=== PATIENT | male | born 1995 | race Caucasian/White ===

== ENCOUNTER 2017-03-22 02:45 | Emergency (ER) | payer MEDICAID, OTHER ==
[2017-03-22 02:45] VITALS: BMI 32.5
[2017-03-22 02:53] VITALS: RESP 20; TEMP 97.7
--- NOTE | 2017-03-22 03:01 | C.PDOC ---
Time Seen by Provider: 03/22/17 03:00 Chief Complaint (Nursing): Chest Pain Past Medical History Vital Signs: Last Vital Signs Temp 97.7 F 03/22/17 02:52 Pulse 84 03/22/17 02:52 Resp 20 03/22/17 02:52 BP 125/76 03/22/17 02:52 Pulse Ox 97 03/22/17 02:52 - Medical History PMH: Atrial Fibrillation, HTN Denies: Chronic Kidney Disease - Social History Hx Tobacco Use: Yes Hx Alcohol Use: Yes (drinks liquor 1 pint/week) Hx Substance Use: Yes - Immunization History Hx Tetanus Toxoid Vaccination: No Hx Influenza Vaccination: No Hx Pneumococcal Vaccination: No ED Course And Treatment O2 Sat by Pulse Oximetry: 97 Disposition Counseled Patient/Family Regarding: Studies Performed, Diagnosis - Disposition Disposition Time: 03:00 Forms: [employer] (Sinhala)
[2017-03-22] MEDS ORDERED: Aspirin 325 mg EC Tablets PO STA (03:11)
--- NOTE | 2017-03-22 03:11 | C.PDOC ---
History Of Present Illness Patient presents to the ER with a complaint of dull, aching, pinching chest discomfort that began 30 minutes ago after smoking marijuana. Patient has a Hx of afib but is currently not on any medications. Patient reports the pain as resolved at this time and is speaking in complete sentences. Denies fever, chills, nausea, or vomiting. Time Seen by Provider: 03/22/17 03:00 Chief Complaint (Nursing): Chest Pain History Per: Patient History/Exam Limitations: no limitations Onset/Duration Of Symptoms: Mins Current Symptoms Are (Timing): Gone Severity: None Pain Scale Rating Of: 0 Recent travel outside of the [place]: No Past Medical History Reviewed: Historical Data, Nursing Documentation, Vital Signs Vital Signs: Last Vital Signs Temp 97.7 F 03/22/17 02:52 Pulse 84 03/22/17 02:52 Resp 20 03/22/17 02:52 BP 125/76 03/22/17 02:52 Pulse Ox 97 03/22/17 03:52 - Medical History PMH: Atrial Fibrillation, HTN Family History: States: No Known Family Hx - Social History Hx Tobacco Use: Yes Hx Alcohol Use: Yes (drinks liquor 1 pint/week) Hx Substance Use: Yes - Immunization History Hx Tetanus Toxoid Vaccination: No Hx Influenza Vaccination: No Hx Pneumococcal Vaccination: No Review Of Systems Constitutional: Negative for: Fever, Chills Cardiovascular: Positive for: Other (Chest discomfort) Respiratory: Negative for: Shortness of Breath Gastrointestinal: Negative for: Nausea, Vomiting, Diarrhea Physical Exam - Physical Exam Appears: Non-toxic, No Acute Distress Skin: Warm, Dry Head: Normacephalic Oral Mucosa: Moist Chest: Symmetrical, No Tenderness Cardiovascular: Rhythm Regular Respiratory: No Rales, No Rhonchi, No Wheezing Gastrointestinal/Abdominal: Soft, No Tenderness Neurological/Psych: Oriented x3 ED Course And Treatment - Laboratory Results Result Diagrams: 03/22/17 03:30 03/22/17 03:30 ECG: Interpreted By Me, Viewed By Me ECG Rhythm: Sinus Rhythm (75), Nonspecific Changes O2 Sat by Pulse Oximetry: 97 Pulse Ox Interpretation: Normal - Radiology CXR: Interpreted by Me, Viewed By Me CXR Interpretation: No: Infiltrates, Fracture, Pnemothorax Progress Note: EKG, blood work, CXR, and urinalysis ordered. Aspirin administered. Reevaluation Time: 04:22 Reassessment Condition: Improved Disposition Counseled Patient/Family Regarding: Studies Performed, Diagnosis, Need For Followup - Disposition Referrals: Romaine Alejandro MD [Staff Provider] - Disposition: HOME/ ROUTINE Disposition Time: 03:10 Condition: FAIR Instructions: Costochondritis (ED) Forms: [employer] (Uzbek) - Clinical Impression Clinical Impression: Costochondral chest pain - Scribe Statement The provider has reviewed the documentation as recorded by the Scribjanet Taylor All medical record entries made by the Nicibjanet were at my direction and personally dictated by me. I have reviewed the chart and agree that the record accurately reflects my personal performance of the history, physical exam, medical decision making, and the department course for this patient. I have also personally directed, reviewed, and agree with the discharge instructions and disposition.
[2017-03-22 03:32] LABS: BASO # 0.1 K/uL (0.0-0.2); BASO % 1.1 % (0.0-2.0); EOS # 0.4 K/uL (0.0-0.7); EOS % 3.9 % (0.0-4.0); HEMATOCRIT 41.5 % (35.0-51.0); LYMPH # 3.4 K/uL (1.0-4.3); MEAN CELL VOLUME 86.8 fL (80.0-94.0); MEAN CORPUSCULAR HEMOGLOBIN 29.2 pg (27.0-31.0); MEAN CORPUSCULAR HGB CONC 33.7 g/dL (33.0-37.0); MONO # 0.9 K/uL (0.0-0.8); NRBC % 0.1 % (0.0-2.0); WHITE BLOOD COUNT 10.6 K/uL (4.8-10.8)
[2017-03-22 03:39] LABS: ALB/GLOB RATIO 1.8 (1.0-2.1); ALKALINE PHOSPHATASE 39 U/L (38-126); ALT/SGPT 37 U/L (21-72); AST/SGOT 31 U/L (17-59); BILIRUBIN,TOTAL 0.7 mg/dL (0.2-1.3); BLOOD UREA NITROGEN 19 mg/dL (9-20); CALCIUM 8.6 mg/dl (8.6-10.4); CARBON DIOXIDE 26 mmol/L (22-30); CHLORIDE 100 mmol/L (98-107); GFR AFRICAN-AMERICAN > 60; GLUCOSE,RANDOM 86 mg/dL (75-110); POTASSIUM 3.8 mmol/L (3.6-5.2); SODIUM 136 mmol/L (132-148); TOTAL PROTEIN 6.7 g/dL (6.3-8.3)
[2017-03-22] MEDS ORDERED: Aspirin 325 mg EC Tablets PO ONE (03:39)
[2017-03-22 03:51] LABS: RBC URINE < 1 /hpf (0-3); URINE BILIRUBIN NEGATIVE (NEGATIVE); URINE BLOOD NEGATIVE (NEGATIVE); URINE COLOR Straw (YELLOW); URINE GLUCOSE (UA) NORMAL (Normal); URINE KETONE NEGATIVE (NEGATIVE); URINE LEUKOCYTE ESTERASE NEG Leu/uL (Negative); URINE PROTEIN NEGATIVE (NEGATIVE); URINE UROBILINOGEN NORMAL mg/dL (0.2-1.0)
[2017-03-22 04:34] VITALS: BP 145/78; PULSE 78; O2SAT 100
[2017-03-22 04:47] LABS: THYROID STIMULATING HORMONE 1.31 mIU/L (0.46-4.68)
--- NOTE | 2017-03-22 08:21 | RAD ---
Chest x-ray single frontal view History: Chest pain. Comparison: 03/18/2015 Findings: No focal infiltrate or effusion. Heart size within normal limits. Mild right hilar prominence. Impression: No focal infiltrate or effusion.
--- NOTE | 2017-03-25 22:29 | CARD ---
APPROVED REPORT EKG Measurement Heart [id number] <Conclusion> Normal sinus rhythm Early repolarization Normal ECG
== END 2017-03-22 04:34 | disposition home or self-care (01) ==
LOC: C.ER 02:45
DX: R07.89 Other chest pain (principal)

== ENCOUNTER 2017-05-26 13:45 | Observation (INO) | payer MEDICAID ==
[2017-05-26 13:45] VITALS: BMI 32.5
[2017-05-26] MEDS ORDERED: Aspirin 325 mg EC Tablets PO STA (15:08)
--- NOTE | 2017-05-26 15:22 | RAD ---
HISTORY: cough/chest pain COMPARISON: Comparison is made with 03/22/2017 TECHNIQUE: Chest PA and lateral FINDINGS: LUNGS: No active pulmonary disease. PLEURA: No significant pleural effusion identified. No pneumothorax apparent. CARDIOVASCULAR: Normal. OSSEOUS STRUCTURES: No significant abnormalities. VISUALIZED UPPER ABDOMEN: Normal. OTHER FINDINGS: None. IMPRESSION: No radiographic evidence of pneumonia.
[2017-05-26 15:37] LABS: BASO # 0.1 K/uL (0.0-0.2); BASO % 1.3 % (0.0-2.0); EOS # 0.5 K/uL (0.0-0.7); EOS % 7.4 % (0.0-4.0); HEMOGLOBIN 14.7 g/dL (12.0-18.0); LYMPH # 2.2 K/uL (1.0-4.3); LYMPH % 36.2 % (20.0-40.0); MEAN CORPUSCULAR HEMOGLOBIN 29.7 pg (27.0-31.0); MEAN CORPUSCULAR HGB CONC 34.2 g/dL (33.0-37.0); MEAN PLATELET VOLUME 8.1 fL (7.2-11.7); MONO # 0.7 K/uL (0.0-0.8); MONO % 10.7 % (0.0-10.0); NEUT # 2.7 K/uL (1.8-7.0); NEUT % 44.4 % (50.0-75.0); NRBC % 0.1 % (0.0-2.0); RBC 4.94 Mil/uL (4.40-5.90); RED CELL DISTRIBUTION WIDTH 13.7 % (11.5-14.5); WHITE BLOOD COUNT 6.1 K/uL (4.8-10.8)
[2017-05-26 15:45] LABS: PROTHROMBIN TIME 11.7 SECONDS (9.7-12.2)
--- NOTE | 2017-05-26 15:49 | C.PDOC ---
History Of Present Illness 21 year old male presents to the ER with left sided chest pain that began today. Patient also reports of a persistent cough with brown sputum for months. He is a smoker but reports to have quit smoking one week ago. Patient has a history of atrial fibrillation and caridac myopathy and states his radiologic technology teacher stopped his Coumadin and cardizem regimen. Time Seen by Provider: 05/26/17 14:10 Chief Complaint (Nursing): Chest Pain History/Exam Limitations: no limitations Current Symptoms Are (Timing): Still Present Past Medical History Vital Signs: Last Vital Signs Temp 97.9 F 05/26/17 13:50 Pulse 76 05/26/17 13:50 Resp 18 05/26/17 13:50 BP 134/73 05/26/17 13:50 Pulse Ox 98 05/26/17 16:43 - Medical History PMH: Atrial Fibrillation, HTN Denies: Chronic Kidney Disease Family History: States: No Known Family Hx - Social History Hx Tobacco Use: Yes Hx Alcohol Use: No Hx Substance Use: No - Immunization History Hx Tetanus Toxoid Vaccination: No Hx Influenza Vaccination: No Hx Pneumococcal Vaccination: No Review Of Systems Except As Marked, All Systems Reviewed And Found Negative. Constitutional: Negative for: Weakness Cardiovascular: Positive for: Chest Pain (left sided). Negative for: Light Headedness Respiratory: Positive for: Cough (with brown sputum). Negative for: Shortness of Breath Physical Exam - Physical Exam Appears: Non-toxic, No Acute Distress Skin: Normal Color, Dry Head: Atraumatic, Normacephalic Eye(s): bilateral: Normal Inspection Neck: Normal ROM, Supple Chest: Symmetrical Cardiovascular: Rhythm Regular Respiratory: Normal Breath Sounds Gastrointestinal/Abdominal: Bowel Sounds, Soft, No Tenderness Extremity: Normal ROM, No Pedal Edema, No Calf Tenderness Neurological/Psych: Oriented x3, Normal Speech, Normal Cognition ED Course And Treatment - Laboratory Results Result Diagrams: 05/26/17 15:31 05/26/17 15:31 ECG: Interpreted By Me, Viewed By Me ECG Rhythm: Sinus Rhythm ECG Interpretation: No Acute Changes Rate From EC O2 Sat by Pulse Oximetry: 98 (RA) Pulse Ox Interpretation: Normal Progress Note: ca was d/c who accepted patient to [facility] for observation. Medical Decision Making Medical Decision Making: Plan: -- Labs/ cardiac workup -- Aspirin 325mg PO -- CXR -- Urine Drug Screen Disposition - Disposition Disposition: HOSPITALIZED Disposition Time: 16:42 Condition: FAIR - Clinical Impression Clinical Impression: Chest pain, Productive cough - PA / PRODUCTION CONTROLLER / Resident Statement MD/DO has reviewed & agrees with the documentation as recorded. - Scribe Statement The provider has reviewed the documentation as recorded by the Scribe (Dahlia Brar) All medical record entries made by the Scribe were at my direction and personally dictated by me. I have reviewed the chart and agree that the record accurately reflects my personal performance of the history, physical exam, medical decision making, and the department course for this patient. I have also personally directed, reviewed, and agree with the discharge instructions and disposition. Decision To Admit - Pt Status Changed To: Hospital Disposition Of: Observation - . Bed Request Type: Telemetry Admitting Physician: Matilde Neal Patient Diagnosis: Chest pain, Productive cough
[2017-05-26 15:53] LABS: ALB/GLOB RATIO 1.4 (1.0-2.1); ALBUMIN 4.5 g/dL (3.5-5.0); ALT/SGPT 55 U/L (21-72); AST/SGOT 116 U/L (17-59); BLOOD UREA NITROGEN 16 mg/dL (9-20); CALCIUM 9.5 mg/dl (8.6-10.4); GFR AFRICAN-AMERICAN > 60; GFR NON-AFRICAN AMERICAN > 60; HDL CHOLESTEROL 36 mg/dL (30-70)
[2017-05-26 16:13] LABS: LDL CHOLESTEROL 99 mg/dL (0-129)
[2017-05-26 16:21] LABS: BARBITURATES, UR NEGATIVE (NEGATIVE); BENZODIAZEPINES, UR NEGATIVE (NEGATIVE); OPIATES, UR NEGATIVE (NEGATIVE); PHENCYCLIDINE, UR NEGATIVE (NEGATIVE)
--- NOTE | 2017-05-26 17:14 | CP.PCM.HP ---
<GarrettBryn curiel - Last Filed: 05/26/17 19:04> History of Present Illness - History of Present Illness History of Present Illness: CC: Cough x1mo w/ brown sputum and chest pain x1d This patient is a 21yo M w/ a PMhx of HTN, paroxsysmal A Fibb not on rate control or anticoagulation due to age and spontaneous return to sinus rhythm who is coming to the hospital after experiencing 10minutes of chest pain at the gym. Said he was lifting weights, had intense left sided chest pressure/pain described as stabbing that went away after he walked around. States he has no chest pain at this moment. Also admits to 1mo hx of cough with brown sputum. States stopped smoking 1 week ago, both marijuana and cigarettes. Previous xanax /percocet abuser as well, stopped 1 year ago. No other illicit drugs; denies cocaine use ever. Currently denies fevers/chills, JOSÉ, CP, SOB, abdominal pain, N /V/D, dysurira/freq/urg. Patient states that since quitting cigarettes and marijuana 1 week ago has been trying ot be more healthy, and has lost 20lbs. Noticed that BP was low here, for him, 104/65, when it is normally 130/80 with his lisinopril 20mg. Pmhx: HTN, Paroxsymal A Fibb Meds: Lisinopril 20mg FamHx: Dad with open heart surgery in late 50's also with DM, HLD Mom HTN DM obesity Surgeries: Denies Allergies: denies Social: student development advisor, lives at home, former smoker/marijuana/opiod abuser, social drinker but states stopped all 1wk ago. Independent in all IADL and ADL. Not a fall risk. Present on Admission - Present on Admission Any Indicators Present on Admission: No History of DVT/PE: No History of Uncontrolled Diabetes: No Urinary Catheter: No Decubitus Ulcer Present: No Past Patient History - Infectious Disease Hx of Infectious Diseases: None - Past Medical History & Family History Past Medical History?: Yes - Past Social History Smoking Status: Former Smoker - CARDIAC Hx Atrial Fibrillation: Yes Hx Hypertension: Yes - PULMONARY Hx Respiratory Disorders: No - NEUROLOGICAL Hx Neurological Disorder: No - HEENT Hx HEENT Problems: No - RENAL Hx Chronic Kidney Disease: No - ENDOCRINE/METABOLIC Hx Endocrine Disorders: No - HEMATOLOGICAL/ONCOLOGICAL Hx Blood Disorders: No - INTEGUMENTARY Hx Dermatological Problems: No - MUSCULOSKELETAL/RHEUMATOLOGICAL Hx Musculoskeletal Disorders: No Hx Falls: No - GASTROINTESTINAL Hx Gastrointestinal Disorders: No - GENITOURINARY/GYNECOLOGICAL Hx Genitourinary Disorders: No - PSYCHIATRIC Hx Substance Use: No - SURGICAL HISTORY Hx Surgeries: No - ANESTHESIA Hx Anesthesia: No Hx Anesthesia Reactions: No Hx Malignant Hyperthermia: No Meds Allergies/Adverse Reactions: Allergies Allergy/AdvReac Type Severity Reaction Status Date / Time No Known Allergies Allergy Verified 05/26/17 13:50 Physical Exam - Constitutional Appears: Well, Non-toxic - Head Exam Head Exam: ATRAUMATIC - Eye Exam Eye Exam: EOMI - ENT Exam ENT Exam: Mucous Membranes Moist - Neck Exam Neck exam: Positive for: Full Rom. Negative for: Lymphadenopathy - Respiratory Exam Respiratory Exam: Clear to Auscultation Bilateral, NORMAL BREATHING PATTERN. absent: Rales, Rhonchi, Wheezes - Cardiovascular Exam Cardiovascular Exam: REGULAR RHYTHM, +S1, +S2, Systolic Murmur (slight 2/6 systolic murmur in the best heard at apex ) - GI/Abdominal Exam GI & Abdominal Exam: Normal Bowel Sounds, Soft. absent: Distended, Firm, Guarding, Hernia, Organomegaly, Pulsatile Mass, Rebound, Tenderness - Rectal Exam Rectal Exam: Deferred - Extremities Exam Extremities exam: Positive for: full ROM. Negative for: calf tenderness - Back Exam Back exam: NORMAL INSPECTION. absent: CVA tenderness (L), CVA tenderness (R) - Neurological Exam Neurological exam: Alert, CN II-XII Intact, Normal Gait, Oriented x3, Reflexes Normal - Psychiatric Exam Psychiatric exam: Normal Affect, Normal Mood - Skin Skin Exam: Warm Results - Vital Signs Recent Vital Signs: Last Vital Signs Temp 97.9 F 05/26/17 13:50 Pulse 76 05/26/17 13:50 Resp 18 05/26/17 13:50 BP 134/73 05/26/17 13:50 Pulse Ox 98 05/26/17 16:43 - Labs Result Diagrams: 05/26/17 15:31 05/26/17 15:31 Labs: Laboratory Results - last 24 hr 05/26/17 05/26/17 05/26/17 15:31 15:31 15:31 WBC 6.1 RBC 4.94 Hgb 14.7 Hct 43.0 MCV 87.0 MCH 29.7 MCHC 34.2 RDW 13.7 Plt Count 347 MPV 8.1 Neut % (Auto) 44.4 L Lymph % (Auto) 36.2 [place] % (Auto) 10.7 H Eos % (Auto) 7.4 H Baso % (Auto) 1.3 Neut # (Auto) 2.7 Lymph # (Auto) 2.2 [place] # (Auto) 0.7 Eos # (Auto) 0.5 Baso # (Auto) 0.1 PT 11.7 INR 1.0 APTT 32 Sodium 134 Potassium 4.6 Chloride 98 Carbon Dioxide 28 Anion Gap 13 BUN 16 Creatinine 0.7 L Est GFR ( Amer) > 60 Est GFR (Non-Af Amer) > 60 Random Glucose 96 Calcium 9.5 Total Bilirubin 0.9 AST 116 H D ALT 55 Alkaline Phosphatase 44 Troponin I < 0.0120 Total Protein 7.6 Albumin 4.5 Globulin 3.1 Albumin/Globulin Ratio 1.4 Triglycerides 51 D Cholesterol 155 LDL Cholesterol Direct 99 HDL Cholesterol 36 Urine Opiates Screen Urine Methadone Screen Ur Barbiturates Screen Ur Phencyclidine Scrn Ur Amphetamines Screen U Benzodiazepines Scrn U Oth Cocaine Metabols U Cannabinoids Screen 05/26/17 15:54 WBC RBC Hgb Hct MCV MCH MCHC RDW Plt Count MPV Neut % (Auto) Lymph % (Auto) [place] % (Auto) Eos % (Auto) Baso % (Auto) Neut # (Auto) Lymph # (Auto) [place] # (Auto) Eos # (Auto) Baso # (Auto) PT INR APTT Sodium Potassium Chloride Carbon Dioxide Anion Gap BUN Creatinine Est GFR ( Amer) Est GFR (Non-Af Amer) Random Glucose Calcium Total Bilirubin AST ALT Alkaline Phosphatase Troponin I Total Protein Albumin Globulin Albumin/Globulin Ratio Triglycerides Cholesterol LDL Cholesterol Direct HDL Cholesterol Urine Opiates Screen Negative Urine Methadone Screen Negative Ur Barbiturates Screen Negative Ur Phencyclidine Scrn Negative Ur Amphetamines Screen Negative U Benzodiazepines Scrn Negative U Oth Cocaine Metabols Negative U Cannabinoids Screen Positive H Assessment & Plan - Assessment and Plan (Free Text) Assessment: 21yo M admitted for chest pain Chest Pain -Initial SUZETTE negative; f/u 2 more sets -Lipid panel done; WNL however low HDL and encouraged continued adherence to exercise regimen -TSH from 03/24 was normal -f/u hemoglobin A1C; previous from 2 years ago was 5.1 -f/u echo Previous echo from 2014 showed dilated cardiomyopathy with likely CAD with EF of 40-45%; apical akinesis Stress from 2016 was normal; strong family history of CAD in 50's on mens side (dad, grandfather) -f/u cardiology recs; patient has Dr. Dempsey on outpatient for outpatient cardiology who will be on consult here -smoking cessation advised to be continued; advised to not do illicit drugs as well; agrees with treatment plan; patient does not desire nicotine patch HTN -c/w lisinopril -patient has had 20lb weight loss, might need to be titrated down because of this if BP stays low Elevated ALT -will f/u hepatitis panel Cough -has had for one month -rapid flu negative no fevers/chills WBC or sick contacts or recent travel -cough medicine PRN -has been on lisinopril for 2 years with no side effects Proph Lovenox Pepcid Out of bed as tolerated Case discussed with Dr. Neal Decision To Admit - Pt Status Changed To: Hospital Disposition Of: Observation - . Bed Request Type: Telemetry Admitting Physician: Matilde Neal <Matilde Neal V - Last Filed: 05/26/17 19:51> Results - Vital Signs Recent Vital Signs: Last Vital Signs Temp 97.9 F 05/26/17 18:58 Pulse 80 05/26/17 18:58 Resp 16 05/26/17 18:58 BP 118/54 L 05/26/17 18:58 Pulse Ox 99 05/26/17 18:58 - Labs Result Diagrams: 05/26/17 15:31 05/26/17 15:31 Labs: Laboratory Results - last 24 hr 05/26/17 05/26/17 05/26/17 15:31 15:31 15:31 WBC 6.1 RBC 4.94 Hgb 14.7 Hct 43.0 MCV 87.0 MCH 29.7 MCHC 34.2 RDW 13.7 Plt Count 347 MPV 8.1 Neut % (Auto) 44.4 L Lymph % (Auto) 36.2 [place] % (Auto) 10.7 H Eos % (Auto) 7.4 H Baso % (Auto) 1.3 Neut # (Auto) 2.7 Lymph # (Auto) 2.2 [place] # (Auto) 0.7 Eos # (Auto) 0.5 Baso # (Auto) 0.1 PT 11.7 INR 1.0 APTT 32 Sodium 134 Potassium 4.6 Chloride 98 Carbon Dioxide 28 Anion Gap 13 BUN 16 Creatinine 0.7 L Est GFR ( Amer) > 60 Est GFR (Non-Af Amer) > 60 Random Glucose 96 Calcium 9.5 Total Bilirubin 0.9 AST 116 H D ALT 55 Alkaline Phosphatase 44 Troponin I < 0.0120 Total Protein 7.6 Albumin 4.5 Globulin 3.1 Albumin/Globulin Ratio 1.4 Triglycerides 51 D Cholesterol 155 LDL Cholesterol Direct 99 HDL Cholesterol 36 Urine Opiates Screen Urine Methadone Screen Ur Barbiturates Screen Ur Phencyclidine Scrn Ur Amphetamines Screen U Benzodiazepines Scrn U Oth Cocaine Metabols U Cannabinoids Screen Influenza Typ A,B (EIA) 05/26/17 05/26/17 15:54 17:12 WBC RBC Hgb Hct MCV MCH MCHC RDW Plt Count MPV Neut % (Auto) Lymph % (Auto) [place] % (Auto) Eos % (Auto) Baso % (Auto) Neut # (Auto) Lymph # (Auto) [place] # (Auto) Eos # (Auto) Baso # (Auto) PT INR APTT Sodium Potassium Chloride Carbon Dioxide Anion Gap BUN Creatinine Est GFR ( Amer) Est GFR (Non-Af Amer) Random Glucose Calcium Total Bilirubin AST ALT Alkaline Phosphatase Troponin I Total Protein Albumin Globulin Albumin/Globulin Ratio Triglycerides Cholesterol LDL Cholesterol Direct HDL Cholesterol Urine Opiates Screen Negative Urine Methadone Screen Negative Ur Barbiturates Screen Negative Ur Phencyclidine Scrn Negative Ur Amphetamines Screen Negative U Benzodiazepines Scrn Negative U Oth Cocaine Metabols Negative U Cannabinoids Screen Positive H Influenza Typ A,B (EIA) Negative for flu a/b Assessment & Plan (1) Chest pain Status: Acute (2) Paroxysmal A-fib Status: Acute (3) Cough Status: Acute (4) HTN (hypertension) Status: Acute (5) Prophylactic measure Status: Acute Attending/Attestation - Attestation I have personally seen and examined this patient.: Yes I have fully participated in the care of the patient.: Yes I have reviewed all pertinent clinical information: Yes Notes (Text): Patient seen, examined and case discussed with medical record librarian. Patient sen in [facility] Bed 2 in the ED at 5:45PM on 05/26/17. Patient with history of dilated cardiomyopathy, paroxymal atrial fibrillation, prior xanax/tobacco use which he has stopped per patient comes for chest pain which came after rigorous workout at the gym. Patient reports he was lifting weights at the gym, and felt this weird feeling in his chest where his heart would bed after completing his workout, which he reports lasted for 5-10 minutes. Patient reports he saw his executive director global brand marketing about 2-3 months ago, he was told at that appointment to make lifestyle changes including changing diet, stop smoking. Patient reports he was told by his executive director global brand marketing he does not need Cardizem/Xarelto which was previously on. Patient reports he does not take aspirin. Patient reports over the past 2-3 months, he has lost about 20-30 lbs of weight with carbohydrate restricted diet and he has started engaged in rigorous workout routine where in he weight lifts, (he is doing weights on his own, no first aid trainer), and then does one 1 mile run following. Patient also reports he has been coughing up brown specks, denies blood, denies recent travel for the past month. Denies fever, denies chills. Resident has left a message to Dr. Dhillon, patient's executive director global brand marketing, awaiting call back. I have spoken with Dr. Tee, his partner who is on-call, who will follow-up with Dr Dhillon in regards to the patient. Assessment/Plan 1) Chest Pain History of Dilated Cardiomyopathy History of Paroxymal Atrial Fibrillation Family history of CAD Hypertension * observation on telemetry * Cardiology: Dr Fan Dhillon-->patient's private executive director global brand marketing * I have spoke with Dr. Tee, his partner in regards to the patient * Aspirin 325mg PO X1 given, start Aspirin 81mg PO daily * Initial SUZETTE negative; f/u 2 more sets * Lipid panel done; WNL however low HDL and encouraged continued adherence to exercise regimen * TSH from 03/24 was normal; will repeat TSH * Order hemoglobin A1C; previous from 2 years ago was 5.1 * Order echo * Previous echo from 2014 showed dilated cardiomyopathy with likely CAD with EF of 40-45%; apical akinesis * Stress from 2016 was normal; strong family history of CAD in 50's on mens side (dad, grandfather) * Patient reports he has had recent exam with Dr. Dhillon involving a dye but unclear what exam * f/u cardiology recs; patient has Dr. Dempsey on outpatient for outpatient cardiology who will be on consult here * smoking cessation advised to be continued; advised to not do illicit drugs as well; agrees with treatment plan; patient does not desire nicotine patch * SUZETTE and EKG X6 hours * Blood alcohol * Patient is currently at sinus at bedside 2) History of Hypertension * Patient abiding by weight loss modifications and exercise routine * Change Lisinopril 10mg PO BID with Hold SBP<100 * Patient is not on rate control agent; per patient it was recently discontinued 3) Elevated ALT * f/u hepatitis panel 4) Cough * rapid flu negative * no fevers/chills WBC or sick contacts or recent travel * cough medicine PRN * has been on lisinopril for 2 years with no side effects * Will check legionella, myocoplasma and Strep pneumonaie 5) Prophylactic measure * Lovenox 40mg subqdaily * Pepcid 20mg PO BID
[2017-05-26] MEDS ORDERED: guaiFENesin-Codeine 100-10mg/5ml Syrup (10ml) UD PO PRN (17:20)
[2017-05-26 20:03] LABS: B-TYPE NATRIURETIC PEPTIDE < 11.1 pg/mL (0-450)
[2017-05-27 00:40] LABS: CK-MB 2.94 ng/mL (0.0-3.38)
[2017-05-27 05:49] LABS: BASO % 0.5 % (0.0-2.0); EOS # 0.7 K/uL (0.0-0.7); EOS % 9.3 % (0.0-4.0); HEMOGLOBIN 14.7 g/dL (12.0-18.0); LYMPH # 3.3 K/uL (1.0-4.3); LYMPH % 41.3 % (20.0-40.0); MEAN CELL VOLUME 87.8 fL (80.0-94.0); MEAN CORPUSCULAR HEMOGLOBIN 30.7 pg (27.0-31.0); MEAN PLATELET VOLUME 8.4 fL (7.2-11.7); MONO # 0.8 K/uL (0.0-0.8); MONO % 10.4 % (0.0-10.0); NEUT % 38.5 % (50.0-75.0); RBC 4.79 Mil/uL (4.40-5.90); RED CELL DISTRIBUTION WIDTH 13.7 % (11.5-14.5); WHITE BLOOD COUNT 7.9 K/uL (4.8-10.8)
[2017-05-27 06:45] LABS: ALB/GLOB RATIO 1.4 (1.0-2.1); ALBUMIN 4.1 g/dL (3.5-5.0); ALT/SGPT 52 U/L (21-72); AST/SGOT 90 U/L (17-59); BLOOD UREA NITROGEN 12 mg/dL (9-20); CALCIUM 9.3 mg/dl (8.6-10.4); GFR AFRICAN-AMERICAN > 60; GFR NON-AFRICAN AMERICAN > 60
[2017-05-27 06:52] LABS: HEPATITIS B SURFACE AG Negative (NEGATIVE)
[2017-05-27 06:57] LABS: HEPATITIS A IGM NEGATIVE (NEGATIVE); HEPATITIS B CORE AB NEGATIVE (NEGATIVE)
[2017-05-27 07:09] LABS: HEPATITIS C ANTIBODY NEGATIVE (NEGATIVE)
[2017-05-27 08:37] LABS: CK-MB 2.73 ng/mL (0.0-3.38)
[2017-05-27] MEDS ORDERED: Enoxaparin 40 mg Syringe SC SCH (10:00)
[2017-05-27] MEDS ORDERED: Fluticasone Nasal 50 mcg/Spray NAS SCH (10:00)
[2017-05-27 10:03] VITALS: RESP 18
--- NOTE | 2017-05-27 12:19 | CP.PCM.DIS ---
Addendum entered and electronically signed by Terese Santamaria DO 05/27/17 13:05 : Spoke with Dr. Dhillon, outpatient stress test tomorrow 11am at his office. Patient made aware and agreed with plan. Original Note: <Terese Santamaria - Last Filed: 05/27/17 12:12> Provider - Provider Date of Admission: 05/26/17 16:41 Attending physician: Matilde Neal DO Time Spent in preparation of Discharge (in minutes): 55 Hospital Course - Lab Results Lab Results: Most Recent Lab Values WBC 7.9 K/uL (4.8-10.8) 05/27/17 05:24 RBC 4.79 Mil/uL (4.40-5.90) 05/27/17 05:24 Hgb 14.7 g/dL (12.0-18.0) 05/27/17 05:24 Hct 42.1 % (35.0-51.0) 05/27/17 05:24 MCV 87.8 fL (80.0-94.0) 05/27/17 05:24 MCH 30.7 pg (27.0-31.0) 05/27/17 05:24 MCHC 35.0 g/dL (33.0-37.0) 05/27/17 05:24 RDW 13.7 % (11.5-14.5) 05/27/17 05:24 Plt Count 307 K/uL (130-400) 05/27/17 05:24 MPV 8.4 fL (7.2-11.7) 05/27/17 05:24 Neut % (Auto) 38.5 % (50.0-75.0) L 05/27/17 05:24 Lymph % (Auto) 41.3 % (20.0-40.0) H 05/27/17 05:24 [place] % (Auto) 10.4 % (0.0-10.0) H 05/27/17 05:24 Eos % (Auto) 9.3 % (0.0-4.0) H 05/27/17 05:24 Baso % (Auto) 0.5 % (0.0-2.0) 05/27/17 05:24 Neut # (Auto) 3.0 K/uL (1.8-7.0) 05/27/17 05:24 Lymph # (Auto) 3.3 K/uL (1.0-4.3) 05/27/17 05:24 [place] # (Auto) 0.8 K/uL (0.0-0.8) 05/27/17 05:24 Eos # (Auto) 0.7 K/uL (0.0-0.7) 05/27/17 05:24 Baso # (Auto) 0.0 K/uL (0.0-0.2) 05/27/17 05:24 PT 11.7 SECONDS (9.7-12.2) 05/26/17 15:31 INR 1.0 05/26/17 15:31 APTT 32 SECONDS (21-34) 05/26/17 15:31 Sodium 136 mmol/L (132-148) 05/27/17 05:24 Potassium 4.0 mmol/L (3.6-5.2) 05/27/17 05:24 Chloride 97 mmol/L (98-107) L 05/27/17 05:24 Carbon Dioxide 29 mmol/L (22-30) 05/27/17 05:24 Anion Gap 13 (10-20) 05/27/17 05:24 BUN 12 mg/dL (9-20) 05/27/17 05:24 Creatinine 0.8 mg/dL (0.8-1.5) 05/27/17 05:24 Est GFR ( Amer) > 60 05/27/17 05:24 Est GFR (Non-Af Amer) > 60 05/27/17 05:24 POC Glucose (mg/dL) 105 mg/dL (65-110) 05/27/17 05:33 Random Glucose 88 mg/dL (75-110) 05/27/17 05:24 Hemoglobin A1c 5.3 % (4.2-6.5) 05/27/17 05:24 Calcium 9.3 mg/dl (8.6-10.4) 05/27/17 05:24 Phosphorus 3.5 mg/dL (2.5-4.5) 05/27/17 05:24 Magnesium 2.0 mg/dL (1.6-2.3) 05/27/17 05:24 Total Bilirubin 0.8 mg/dL (0.2-1.3) 05/27/17 05:24 AST 90 U/L (17-59) H D 05/27/17 05:24 ALT 52 U/L (21-72) 05/27/17 05:24 Alkaline Phosphatase 42 U/L (38-126) 05/27/17 05:24 Total Creatine Kinase 4877 U/L (55-170) H 05/27/17 08:04 CK-MB (Mass) 2.73 ng/mL (0.0-3.38) 05/27/17 08:04 Troponin I < 0.0120 ng/mL (0.00-0.120) 05/27/17 08:04 NT-Pro-B Natriuret Pep < 11.1 pg/mL (0-450) 05/26/17 19:35 Total Protein 7.1 g/dL (6.3-8.3) 05/27/17 05:24 Albumin 4.1 g/dL (3.5-5.0) 05/27/17 05:24 Globulin 2.9 gm/dL (2.2-3.9) 05/27/17 05:24 Albumin/Globulin Ratio 1.4 (1.0-2.1) 05/27/17 05:24 Triglycerides 51 mg/dL (0-149) D 05/26/17 15:31 Cholesterol 155 mg/dL (0-199) 05/26/17 15:31 LDL Cholesterol Direct 99 mg/dL (0-129) 05/26/17 15:31 HDL Cholesterol 36 mg/dL (30-70) 05/26/17 15:31 TSH 3rd Generation 2.42 mIU/L (0.46-4.68) 05/27/17 05:24 Urine Opiates Screen Negative (NEGATIVE) 05/26/17 15:54 Urine Methadone Screen Negative (NEGATIVE) 05/26/17 15:54 Ur Barbiturates Screen Negative (NEGATIVE) 05/26/17 15:54 Ur Phencyclidine Scrn Negative (NEGATIVE) 05/26/17 15:54 Ur Amphetamines Screen Negative (NEGATIVE) 05/26/17 15:54 U Benzodiazepines Scrn Negative (NEGATIVE) 05/26/17 15:54 U Oth Cocaine Metabols Negative (NEGATIVE) 05/26/17 15:54 U Cannabinoids Screen Positive (NEGATIVE) H 05/26/17 15:54 Alcohol, Quantitative < 10 mg/dl (0-10) 05/26/17 19:35 Hepatitis A IgM Ab Negative (NEGATIVE) 05/27/17 05:24 Hep Bs Antigen Negative (NEGATIVE) 05/27/17 05:24 Hep B Core IgM Ab Negative (NEGATIVE) 05/27/17 05:24 Hepatitis C Antibody Negative (NEGATIVE) 05/27/17 05:24 Influenza Typ A,B (EIA) Negative for flu a/b (NEGATIVE) 05/26/17 17:12 - Hospital Course Hospital Course: Upon Admission: CC: Cough x1mo w/ brown sputum and chest pain x1d This patient is a 21yo M w/ a PMhx of HTN, paroxsysmal A Fibb not on rate control or anticoagulation due to age and spontaneous return to sinus rhythm who is coming to the hospital after experiencing 10minutes of chest pain at the gym. Said he was lifting weights, had intense left sided chest pressure/pain described as stabbing that went away after he walked around. States he has no chest pain at this moment. Also admits to 1mo hx of cough with brown sputum. States stopped smoking 1 week ago, both marijuana and cigarettes. Previous xanax /percocet abuser as well, stopped 1 year ago. No other illicit drugs; denies cocaine use ever. Currently denies fevers/chills, JOSÉ, CP, SOB, abdominal pain, N /V/D, dysurira/freq/urg. Patient states that since quitting cigarettes and marijuana 1 week ago has been trying ot be more healthy, and has lost 20lbs. Noticed that BP was low here, for him, 104/65, when it is normally 130/80 with his lisinopril 20mg. Pmhx: HTN, Paroxsymal A Fibb Meds: Lisinopril 20mg FamHx: Dad with open heart surgery in late 50's also with DM, HLD Mom HTN DM obesity Surgeries: Denies Allergies: denies Social: journalism intern, lives at home, former smoker/marijuana/opiod abuser, social drinker but states stopped all 1wk ago. Independent in all IADL and ADL. Not a fall risk. Throughout Hospital Course: Patient was admitted for chest pain r/o ACS. Patient has history of dilated cardiomyopathy with LVEF 45-50%. His personal pole lift operator is Dr. Dhillon. Chest Pain History of Dilated Cardiomyopathy History of Paroxymal Atrial Fibrillation Family history of CAD Hypertension * observation on telemetry * Cardiology: Dr Fan Dhillon-->patient's private pole lift operator * Aspirin 325mg PO X1 given, start Aspirin 81mg PO daily * SUZETTE negative x3 * EKG - NSR * Lipid panel done; WNL however low HDL and encouraged continued adherence to exercise regimen * TSH from 03/24 was normal; will repeat TSH * Order hemoglobin A1C 5.3; previous from 2 years ago was 5.1 * Order echo- Spoke with Dr. Dhillon- dilated cardiomyopathy with similar EF as last ECHO in 2014. He will see the patient outpatient for stress test. * Previous echo from 2014 showed dilated cardiomyopathy with likely CAD with EF of 40-45%; apical akinesis * Stress from 2016 was normal; strong family history of CAD in 50's on mens side (dad, grandfather) * Patient reports he has had recent exam with Dr. Dhillon involving a dye but unclear what exam * f/u cardiology recs; patient has Dr. Dempsey on outpatient for outpatient cardiology who will be on consult here - WILL HAVE OUTPATIENT STRESS TEST * smoking cessation advised to be continued; advised to not do illicit drugs as well; agrees with treatment plan; patient does not desire nicotine patch * SUZETTE and EKG X6 hours * Blood alcohol * Patient is currently at sinus at bedside 2) History of Hypertension * Patient abiding by weight loss modifications and exercise routine * Patient is not on rate control agent; per patient it was recently discontinued 3) Elevated ALT * Hepatitis panel - negative 4) Cough * rapid flu negative * no fevers/chills WBC or sick contacts or recent travel * cough medicine PRN * has been on lisinopril for 2 years with no side effects * Will check legionella, myocoplasma and Strep pneumonaie Please review EMR for full record. Discharge Exam - Additional Findings Additional findings: - Head Exam Head Exam: ATRAUMATIC - Eye Exam Eye Exam: EOMI - ENT Exam ENT Exam: Mucous Membranes Moist - Neck Exam Neck exam: Positive for: Full Rom. Negative for: Lymphadenopathy - Respiratory Exam Respiratory Exam: Clear to Auscultation Bilateral, NORMAL BREATHING PATTERN. absent: Rales, Rhonchi, Wheezes - Cardiovascular Exam Cardiovascular Exam: REGULAR RHYTHM, +S1, +S2, Systolic Murmur (slight 2/6 systolic murmur in the best heard at apex ) - GI/Abdominal Exam GI & Abdominal Exam: Normal Bowel Sounds, Soft. absent: Distended, Firm, Guarding, Hernia, Organomegaly, Pulsatile Mass, Rebound, Tenderness - Rectal Exam Rectal Exam: Deferred - Extremities Exam Extremities exam: Positive for: full ROM. Negative for: calf tenderness - Back Exam Back exam: NORMAL INSPECTION. absent: CVA tenderness (L), CVA tenderness (R) - Neurological Exam Neurological exam: Alert, CN II-XII Intact, Normal Gait, Oriented x3, Reflexes Normal - Psychiatric Exam Psychiatric exam: Normal Affect, Normal Mood - Skin Skin Exam: Warm Discharge Plan - Follow Up Plan Condition: FAIR Disposition: HOME/ ROUTINE Patient education suggested?: Yes Instructions: Chest Pain Additional Instructions: Please continue taking Lisinopril 20mg by mouth daily. Please make an appointment to see your Securities Research Analyst Dr. Dhillon as outpatient for a exercise stress test. Please return to the ED if your symptoms worsen or return. Referrals: Brenda Dhillon MD [Staff Provider] - <Bolivar Zarate - Last Filed: 05/27/17 17:57> Provider - Provider Date of Admission: 05/26/17 16:41 Attending physician: Matilde Neal DO Hospital Course - Lab Results Lab Results: Micro Results 05/26/17 19:51 Sputum Gram Stain - Final Most Recent Lab Values WBC 7.9 K/uL (4.8-10.8) 05/27/17 05:24 RBC 4.79 Mil/uL (4.40-5.90) 05/27/17 05:24 Hgb 14.7 g/dL (12.0-18.0) 05/27/17 05:24 Hct 42.1 % (35.0-51.0) 05/27/17 05:24 MCV 87.8 fL (80.0-94.0) 05/27/17 05:24 MCH 30.7 pg (27.0-31.0) 05/27/17 05:24 MCHC 35.0 g/dL (33.0-37.0) 05/27/17 05:24 RDW 13.7 % (11.5-14.5) 05/27/17 05:24 Plt Count 307 K/uL (130-400) 05/27/17 05:24 MPV 8.4 fL (7.2-11.7) 05/27/17 05:24 Neut % (Auto) 38.5 % (50.0-75.0) L 05/27/17 05:24 Lymph % (Auto) 41.3 % (20.0-40.0) H 05/27/17 05:24 [place] % (Auto) 10.4 % (0.0-10.0) H 05/27/17 05:24 Eos % (Auto) 9.3 % (0.0-4.0) H 05/27/17 05:24 Baso % (Auto) 0.5 % (0.0-2.0) 05/27/17 05:24 Neut # (Auto) 3.0 K/uL (1.8-7.0) 05/27/17 05:24 Lymph # (Auto) 3.3 K/uL (1.0-4.3) 05/27/17 05:24 [place] # (Auto) 0.8 K/uL (0.0-0.8) 05/27/17 05:24 Eos # (Auto) 0.7 K/uL (0.0-0.7) 05/27/17 05:24 Baso # (Auto) 0.0 K/uL (0.0-0.2) 05/27/17 05:24 PT 11.7 SECONDS (9.7-12.2) 05/26/17 15:31 INR 1.0 05/26/17 15:31 APTT 32 SECONDS (21-34) 05/26/17 15:31 Sodium 136 mmol/L (132-148) 05/27/17 05:24 Potassium 4.0 mmol/L (3.6-5.2) 05/27/17 05:24 Chloride 97 mmol/L (98-107) L 05/27/17 05:24 Carbon Dioxide 29 mmol/L (22-30) 05/27/17 05:24 Anion Gap 13 (10-20) 05/27/17 05:24 BUN 12 mg/dL (9-20) 05/27/17 05:24 Creatinine 0.8 mg/dL (0.8-1.5) 05/27/17 05:24 Est GFR ( Amer) > 60 05/27/17 05:24 Est GFR (Non-Af Amer) > 60 05/27/17 05:24 POC Glucose (mg/dL) 105 mg/dL (65-110) 05/27/17 05:33 Random Glucose 88 mg/dL (75-110) 05/27/17 05:24 Hemoglobin A1c 5.3 % (4.2-6.5) 05/27/17 05:24 Calcium 9.3 mg/dl (8.6-10.4) 05/27/17 05:24 Phosphorus 3.5 mg/dL (2.5-4.5) 05/27/17 05:24 Magnesium 2.0 mg/dL (1.6-2.3) 05/27/17 05:24 Total Bilirubin 0.8 mg/dL (0.2-1.3) 05/27/17 05:24 AST 90 U/L (17-59) H D 05/27/17 05:24 ALT 52 U/L (21-72) 05/27/17 05:24 Alkaline Phosphatase 42 U/L (38-126) 05/27/17 05:24 Total Creatine Kinase 4877 U/L (55-170) H 05/27/17 08:04 CK-MB (Mass) 2.73 ng/mL (0.0-3.38) 05/27/17 08:04 Troponin I < 0.0120 ng/mL (0.00-0.120) 05/27/17 08:04 NT-Pro-B Natriuret Pep < 11.1 pg/mL (0-450) 05/26/17 19:35 Total Protein 7.1 g/dL (6.3-8.3) 05/27/17 05:24 Albumin 4.1 g/dL (3.5-5.0) 05/27/17 05:24 Globulin 2.9 gm/dL (2.2-3.9) 05/27/17 05:24 Albumin/Globulin Ratio 1.4 (1.0-2.1) 05/27/17 05:24 Triglycerides 51 mg/dL (0-149) D 05/26/17 15:31 Cholesterol 155 mg/dL (0-199) 05/26/17 15:31 LDL Cholesterol Direct 99 mg/dL (0-129) 05/26/17 15:31 HDL Cholesterol 36 mg/dL (30-70) 05/26/17 15:31 TSH 3rd Generation 2.42 mIU/L (0.46-4.68) 05/27/17 05:24 Urine Opiates Screen Negative (NEGATIVE) 05/26/17 15:54 Urine Methadone Screen Negative (NEGATIVE) 05/26/17 15:54 Ur Barbiturates Screen Negative (NEGATIVE) 05/26/17 15:54 Ur Phencyclidine Scrn Negative (NEGATIVE) 05/26/17 15:54 Ur Amphetamines Screen Negative (NEGATIVE) 05/26/17 15:54 U Benzodiazepines Scrn Negative (NEGATIVE) 05/26/17 15:54 U Oth Cocaine Metabols Negative (NEGATIVE) 05/26/17 15:54 U Cannabinoids Screen Positive (NEGATIVE) H 05/26/17 15:54 Alcohol, Quantitative < 10 mg/dl (0-10) 05/26/17 19:35 Hepatitis A IgM Ab Negative (NEGATIVE) 05/27/17 05:24 Hep Bs Antigen Negative (NEGATIVE) 05/27/17 05:24 Hep B Core IgM Ab Negative (NEGATIVE) 05/27/17 05:24 Hepatitis C Antibody Negative (NEGATIVE) 05/27/17 05:24 Influenza Typ A,B (EIA) Negative for flu a/b (NEGATIVE) 05/26/17 17:12 Attending/Attestation - Attestation I have personally seen and examined this patient.: Yes I have fully participated in the care of the patient.: Yes I have reviewed all pertinent clinical information, including history, physical exam and plan: Yes Notes (Text): 05/27/17 17:57 Patient was seen and examined at 8 AM 05/27/17 in ER Bed #1. Exam, assessment and plan, and then discharge plan were gone over with the resident. Bolivar Zarate D.O.
[2017-05-27 13:17] VITALS: BP 127/79; PULSE 84; TEMP 97.8; O2SAT 99
--- NOTE | 2017-05-27 14:23 | CARD ---
APPROVED REPORT EXAM: Two-dimensional and M-mode echocardiogram with Doppler and color Doppler. Other Information Quality : GoodRhythm : INDICATION Chest Pain DIALATED CARDIOMYOPATHY, ETOH RISK FACTORS Hypertension 2D DIMENSIONS IVSd0.9 (0.7-1.1cm)LVDd6.0 (3.9-5.9cm) PWd1.0 (0.7-1.1cm)LVDs4.4 (2.5-4.0cm) FS (%) 25.7 %LVEF (%)50.0 (>50%) M-Mode DIMENSIONS Left Atrium (MM)3.91 (2.5-4.0cm)Aortic Root4.03 (2.2-3.7cm) Aortic Cusp Exc.2.92 (1.5-2.0cm) Mitral Valve MV E Feuykvfi05.5cm/sMV A Bbfzwtmt12.6cm/sE/A ratio1.4 TDI E/Lateral E'0.0E/Medial E'0.0 Tricuspid Valve TR Peak [id number]/sTR Peak Gr.[id number] LEFT VENTRICLE The left ventricle is normal size. There is normal left ventricular wall thickness. The left ventricular function is at low normal. The left ventricular ejection fraction is within the normal range estimated - 50 -55%. There is normal LV segmental wall motion. The left ventricular diastolic function is normal. RIGHT VENTRICLE The right ventricle is normal size. There is normal right ventricular wall thickness. The right ventricular systolic function is normal. ATRIA The left atrium size is normal. The right atrium size is normal. The interatrial septum is intact with no evidence for an atrial septal defect. AORTIC VALVE The aortic valve is normal in structure. No aortic regurgitation is present. MITRAL VALVE The mitral valve is normal in structure. There is no mitral valve regurgitation noted. TRICUSPID VALVE The tricuspid valve is normal in structure. There is trace tricuspid regurgitation. PULMONIC VALVE The pulmonary valve is normal in structure. There is trace to mild pulmonic valvular regurgitation. GREAT VESSELS The aortic root is normal in size. The IVC is normal in size and collapses >50% with inspiration. PERICARDIAL EFFUSION There is no pericardial effusion. <Conclusion> Normal bi - ventricular function. No significant valvular abnormality. No pericardial effusion.
--- NOTE | 2017-05-28 12:28 | CARD ---
APPROVED REPORT EKG Measurement Heart [id number] CT [id number] <Conclusion> Normal sinus rhythm Early repolarization Normal ECG
== END 2017-05-27 12:08 | disposition left against medical advice (07) ==
LOC: C.ER 13:45 → C.9E 16:41 → UNDODISOB 05-27 01:15
PROVIDERS: ADMIT Hospitalist; ATTEND Hospitalist
DX: R07.9 Chest pain, unspecified (principal); Z87.891 Personal history of nicotine dependence; I48.0 Paroxysmal atrial fibrillation; I10 Essential (primary) hypertension; R05 Cough; F12.11 Cannabis abuse, in remission; F11.11 Opioid abuse, in remission; F13.21 Sedative, hypnotic or anxiolytic dependence, in remission; Z82.49 Family history of ischemic heart disease and other diseases of the circulatory system; R01.1 Cardiac murmur, unspecified; I42.0 Dilated cardiomyopathy; R63.4 Abnormal weight loss; R78.89 Finding of other specified substances, not normally found in blood
CPT/HCPCS: 71046; 80053; 80061; 80074; 80320; 80324; 80345; 80346; 80349; 80353; 80358; 80361; 82948; 83036; 83735; 83880; 83992; 84100; 84443; 84484; 85025; 85610; 85730; 87070; 87804; G0378

== ENCOUNTER 2017-12-19 02:35 | Emergency (ER) | payer MEDICAID, OTHER ==
[2017-12-19 02:36] VITALS: BMI 32.5
--- NOTE | 2017-12-19 02:55 | C.PDOC ---
History Of Present Illness 22 yo male w/PMHx of hypertension and paroxysmal atrial fibrillation, come in for evaluation of itchy rash gradually developed over the face for psat 30 minutes.Otherwise, pt denies any other active complaints, denies fever, chills, headache, dizziness, throat tightness or swelling, drooling, denies CP, SOB, dyspnea, diaphoresis, palpitation, abd. pain, N/V/D, denies previous hx of allergy. Ambulate to Ed for evaluation, not in any apparent distress. Time Seen by Provider: 12/19/17 02:37 Chief Complaint (Nursing): Abnormal Skin Integrity History Per: Patient Onset/Duration Of Symptoms: Gradual Past Medical History Reviewed: Historical Data, Nursing Documentation, Vital Signs Vital Signs: Last Vital Signs Temp 97.2 F L 12/19/17 02:47 Pulse 66 12/19/17 02:47 Resp 18 12/19/17 02:47 BP Pulse Ox 96 12/19/17 02:47 - Medical History PMH: Atrial Fibrillation, HTN Denies: Chronic Kidney Disease Family History: States: No Known Family Hx - Social History Hx Tobacco Use: Yes Hx Alcohol Use: No Hx Substance Use: Yes - Immunization History Hx Tetanus Toxoid Vaccination: No Hx Influenza Vaccination: No Hx Pneumococcal Vaccination: No Review Of Systems Except As Marked, All Systems Reviewed And Found Negative. Constitutional: Negative for: Fever, Chills Eyes: Negative for: Vision Change, Redness ENT: Negative for: Ear Discharge, Nose Discharge, Mouth Swelling, Throat Pain, Throat Swelling Cardiovascular: Negative for: Chest Pain, Palpitations, Orthopnea Respiratory: Negative for: Cough, Shortness of Breath, Wheezing Gastrointestinal: Negative for: Nausea, Vomiting, Abdominal Pain, Diarrhea Musculoskeletal: Negative for: Neck Pain, Back Pain Skin: Positive for: Rash Neurological: Negative for: Weakness, Numbness, Altered Mental Status, Headache , Dizziness Physical Exam - Physical Exam Appears: Well, Non-toxic, No Acute Distress Skin: Normal Color, Warm, Rash (papular erythematous rash over B/L cheeks, mild edema.) Head: Normacephalic Eye(s): bilateral: PERRL Nose: No Flaring Tongue: No Swelling Lips: No Swelling Throat: No Erythema, No Drooling, Other (uvula midline, no edema.) Neck: Supple Cardiovascular: Rhythm Regular, No Murmur Respiratory: No Decreased Breath Sounds, No Accessory Muscle Use, No Rales, No Rhonchi, No Stridor, No Wheezing Extremity: Normal ROM, No Swelling Neurological/Psych: Oriented x3, Normal Speech ED Course And Treatment O2 Sat by Pulse Oximetry: 96 Pulse Ox Interpretation: Normal Progress Note: On re-evaluation, pt is afebrile, hemodynamicaly stable. Non- toxic, tolerate PO well in Ed. PulsEOx 96% RA. ENT: NO acute findings, uvula midline, no edema. Neck: Supple, (-) JVD. Lungs: CTA B/L, BS equal B/L. Neuorlogicaly intact. Skin: urticaria-like rash to face. Nocellulitis. Pt advised. ref. to f/u with PMD, [facility] in 2-3 days for re-eval. Return to ED if any worsening or new changes. Disposition Counseled Patient/Family Regarding: Diagnosis, Need For Followup, Rx Given - Disposition Referrals: Ana Dolan MD [Staff Provider] - Disposition: HOME/ ROUTINE Disposition Time: 02:53 Condition: STABLE Additional Instructions: Take medication as prescribed Follow up with PMD, [facility] in 2-3 days for re-evaluation. return to ED if any worsening or new changes. Prescriptions: DiphenhydrAMINE [Benadryl] 25 mg PO BID #10 cap Famotidine [Pepcid] 20 mg PO BID #10 tab Prednisone [Deltasone] 40 mg PO DAILY #6 tablet Instructions: Jordan (GARCIA) - Clinical Impression Clinical Impression: Urticaria
[2017-12-19 03:13] VITALS: BP 140/86; PULSE 72; RESP 16; TEMP 99; O2SAT 99
== END 2017-12-19 03:19 | disposition home or self-care (01) ==
LOC: C.ER 02:35
DX: L50.9 Urticaria, unspecified (principal); I10 Essential (primary) hypertension; I48.0 Paroxysmal atrial fibrillation; Z72.0 Tobacco use